=== PATIENT | female | born 1975 ===

== ENCOUNTER 2016-11-11 13:33 | Observation (INO) | payer OTHER ==
[2016-11-11] MEDS ORDERED: NS 1,000 ML IV ONE (14:01)
--- NOTE | 2016-11-11 14:03 | EDPHY ---
H & P Stated Complaint: streytching last thursday/pulled back/seen at /not responding to meds/numbn Time Seen by Provider: 11/11/16 13:38 HPI/ROS: CHIEF COMPLAINT: Low back pain, left leg radiculopathy, perineal anesthesia HISTORY OF PRESENT ILLNESS: The patient presents to the ED complaining of progressive low back pain, left leg radiculopathy and a mild perineal anesthesia. The patient's symptoms reportedly began after she was doing a mild stretch 1 week ago. She initially was not bothered after the stretching however developed some increasing numbness and pain in her low back radiating to her left leg. She eventually developed weakness in the left foot and paresthesias throughout the left lower extremity involving the plantar aspect of the foot and lateral aspect of the foot. The patient has no prior history of low back issues. The patient denies fever, injection drug use or more significant trauma. The patient reports her symptoms are moderate to severe in nature. She has been taking prednisone and Flexeril without improvement. REVIEW OF SYSTEMS: A comprehensive 10 point review of systems is otherwise negative aside from elements mentioned in the history of present illness. Source: Patient Exam Limitations: No limitations - Personal History LMP (Females 10-55): 15-21 Days Ago Current Tetanus/Diphtheria Vaccine: Yes - Medical/Surgical History Hx Asthma: No Hx Chronic Respiratory Disease: No Hx Diabetes: No Hx Cardiac Disease: No Hx Renal Disease: No Hx Cirrhosis: No Hx Alcoholism: No Hx HIV/AIDS: No Hx Splenectomy or Spleen Trauma: No Other PMH: urinary incontinence/partial thyroidectomy - Social History Smoking Status: Never smoked - Physical Exam Exam: General Appearance: Alert, no acute distress Eyes: Pupils equal and round no pallor or injection ENT, Mouth: Mucous membranes moist Respiratory: There are no retractions, lungs are clear to auscultation Cardiovascular: Regular rate and rhythm Gastrointestinal: Abdomen is soft and nontender, no masses, bowel sounds normal Neurological: Alert and oriented x4, 5/5 strength noted throughout the right leg, 5-out of 5 strength noted with dorsiflexion in the left foot, decreased sensation to light touch along the lateral aspect of the light foot, patient is noted to be hyperreflexic at the patella bilaterally. Skin: Warm and dry, no rashes Musculoskeletal: Neck is supple nontender Extremities: symmetrical, full range of motion Constitutional: Initial Vital Signs Temperature (C) 36.8 C 11/11/16 13:36 Heart Rate 88 11/11/16 13:36 Respiratory Rate 16 11/11/16 13:36 Blood Pressure 132/84 H 11/11/16 13:36 O2 Sat (%) 95 11/11/16 13:36 O2 Delivery Mode Room Air Allergies/Adverse Reactions: No Known Allergies Allergy (Unverified 11/11/16 13:35) Home Medications: Medication Instructions Recorded Flexeril 11/11/16 Prednisone 11/11/16 Medical Decision Making - Diagnostics Imaging: MRI lumbar spine without contrast: L5-S1 disc herniation with leftward herniation with moderate compressive affect on S1 nerve root. Study results reported to me by Dr. Bill Jenkins ED Course/Re-evaluation: The patient had an IV established. She presents to the ED with increasing low back pain, perineal anesthesia and reported weakness involving the left leg. The patient was taken for a stat MRI of her back. Consultation was made with Dr. John Perez from Neurosurgery who will evaluate the patient in the emergency department. The patient will be admitted to the hospital for pain management and likely operative repair of her disc herniation. Differential Diagnosis: Differential diagnosis considered includes cauda equina syndrome, sciatica, lumbar radiculopathy - Data Points Laboratory Results: Laboratory Results 11/11/16 14:35 11/11/16 14:35 11/11/16 14:35 WBC 14.03 H 10^3/uL (3.80-9.50) RBC 4.63 10^6/uL (4.18-5.33) Hgb 14.5 g/dL (12.6-16.3) Hct 42.2 % (38.0-47.0) MCV 91.1 fL (81.5-99.8) MCH 31.3 pg (27.9-34.1) MCHC 34.4 g/dL (32.4-36.7) RDW 12.4 % (11.5-15.2) Plt Count 323 10^3/uL (150-400) MPV 8.7 fL (8.7-11.7) Neut % (Auto) 86.2 H % (39.3-74.2) Lymph % (Auto) 9.1 L % (15.0-45.0) [place] % (Auto) 3.8 L % (4.5-13.0) Eos % (Auto) 0.1 L % (0.6-7.6) Baso % (Auto) 0.3 % (0.3-1.7) Nucleat RBC Rel Count 0.0 % (0.0-0.2) Absolute Neuts (auto) 12.10 H 10^3/uL (1.70-6.50) Absolute Lymphs (auto) 1.28 10^3/uL (1.00-3.00) Absolute Monos (auto) 0.53 10^3/uL (0.30-0.80) Absolute Eos (auto) 0.01 L 10^3/uL (0.03-0.40) Absolute Basos (auto) 0.04 10^3/uL (0.02-0.10) Absolute Nucleated RBC 0.00 10^3/uL (0-0.01) Immature Gran % 0.5 % (0.0-1.1) Immature Gran # 0.07 10^3/uL (0.00-0.10) Sodium 142 mEq/L (134-144) Potassium 4.0 mEq/L (3.5-5.2) Chloride 104 mEq/L (97-110) Carbon Dioxide 26 mEq/l (22-31) Anion Gap 12 mEq/L (8-16) BUN 13 mg/dL (7-23) Creatinine 0.8 mg/dL (0.6-1.0) Estimated GFR > 60 Glucose 112 H mg/dL (70-100) Calcium 9.5 mg/dL (8.5-10.4) Beta HCG, Qual NEGATIVE Medications Given: Discontinued Medications Sodium Chloride (Ns) 1,000 mls @ 0 mls/hr IV ONCE ONE PRN Reason: Wide Open Stop: 11/11/16 14:02 Last Admin: 11/11/16 14:44 Dose: 1,000 mls Morphine Sulfate (Morphine) 4 mg IVP ONCE ONE Stop: 11/11/16 14:44 Last Admin: 11/11/16 14:48 Dose: 4 mg Departure - Departure Disposition: [facility] Acute Clinical Impression: Lumbar disc herniation Condition: Good
[2016-11-11 14:46] LABS: % IMMATURE GRANULYOCYTES 0.5 % (0.0-1.1); ABSOLUTE IMMATURE GRANULOCYTES 0.07 10^3/uL (0.00-0.10); ADD DIFF? NO; ADD MORPH? NO; ADD SCAN? NO; ATYPICAL LYMPHOCYTE FLAG 0 (0-99); FRAGMENT RBC FLAG 0 (0-99); HEMATOCRIT 42.2 % (38.0-47.0); HEMOGLOBIN 14.5 g/dL (12.6-16.3); LEFT SHIFT FLG 0 (0-99); LIPEMIA HEMOLYSIS FLAG 90 (0-99); MEAN CELL HEMOGLOBIN 31.3 pg (27.9-34.1); MEAN CELL HEMOGLOBIN CONCENTR. 34.4 g/dL (32.4-36.7); MEAN CELL VOLUME 91.1 fL (81.5-99.8); MEAN PLATELET VOLUME 8.7 fL (8.7-11.7); PLATELET CLUMPS FLAG 0 (0-99); PLATELET COUNT 323 10^3/uL (150-400); RED BLOOD CELL COUNT 4.63 10^6/uL (4.18-5.33); RED CELL DISTRIBUTION WIDTH 12.4 % (11.5-15.2)
[2016-11-11 15:19] LABS: ANION GAP 12 mEq/L (8-16); CALCIUM 9.5 mg/dL (8.5-10.4); CARBON DIOXIDE 26 mEq/l (22-31); CHLORIDE 104 mEq/L (97-110); CREATININE 0.8 mg/dL (0.6-1.0); GLOMERULAR FILTRATION RATE > 60; GLUCOSE 112 mg/dL (70-100); SODIUM 142 mEq/L (134-144)
[2016-11-11] MEDS ORDERED: THROMBIN (RECOMBINANT) 20,000 UNIT VIAL TP ONE ×2 (15:34→15:47)
[2016-11-11] MEDS ORDERED: SKIN ADHESIVE (DERMABOND) 1 EACH TP ONE (15:34)
[2016-11-11] MEDS ORDERED: BUPIVACAINE/EPI 0.25% 30 ML SDV ONE (15:35)
[2016-11-11] MEDS ORDERED: BACITRACIN 50,000 UNITS/10 ML SYR IRR ONE (15:35)
--- NOTE | 2016-11-11 15:58 | GHP ---
[f rep st] HISTORY AND PHYSICAL DATE OF ADMISSION: 11/11/2016 CHIEF COMPLAINT: Left leg radiculopathy, urinary incontinence, low back pain, numbness. HISTORY OF PRESENT ILLNESS: The patient presented to the [facility] emergency room complainin g of progressive low back pain, left leg radiculopathy and perineal numbness. Also states that she h as had worsening incontinence. Patient contacted our office previously today with these issues. She had previously trialed some oral steroids with no significant improvement in her symptoms, and she w as directed to the closest emergency room. The patient reports that she developed symptoms about 1 w [place] ago when she was doing some gentle stretching. She was initially dealing with some back pain, wh ich she has had for some time now, but states that she then started to develop numbness and pain down her left leg. She states that she does at her baseline have some difficulty with her bladder contro l, however, she states that this was getting worse today. She had severe left leg pain. She had dif ficulty with walking, and also had developed weakness into her left foot, along with numbness down he r leg and into the foot as well. On examination today the patient states her pain is slightly improved with pain medication, however, she still has persistent weakness and feels like she is unable to fully stop a stream of urine when u rinating. She states that she continues to drip urine. She has been taking prednisone and Flexeril at home, and they have not helped her symptoms. She denies nausea, vomiting, other weakness, numbnes s or tingling elsewhere in her body, neck pain, arm pain. REVIEW OF SYSTEMS: Please see above mentioned in the HPI. PAST MEDICAL HISTORY: Urinary incontinence, and partial thyroidectomy. SOCIAL HISTORY: The patient is , she has a child, her is here at the bedside. She is a nonsmoker. FAMILY HISTORY: Patient has a daughter who is healthy. PHYSICAL EXAMINATION: GENERAL: A well-developed, well-nourished female patient in no acute distress . NEUROLOGIC: Cranial nerves 2-12 were grossly intact. Motor examination of the bilateral upper ex tremities is 5/5 for deltoid, triceps, biceps and hand intake manager. Motor examination of the bilateral lowe r extremities is 5/5 for hip flexion, flexion extension and plantar flexion. She has approximately 4 /5 for left foot dorsiflexion. She has decreased sensation to light touch along the posterior aspect of her right leg and lateral aspect of her left foot. She has 3+ bilateral patellar reflexes, negat dragan Babinski, no clonus. She has 2+ bilateral brachioradialis reflexes. No incisions noted over her lumbar spine area, or scarring. LABORATORY: White blood cells 14.03, red blood cells 4.63, hemoglobin 14.5, hematocrit 42.2. MCV is 91, RDW 12.4, platelet count 323. Sodium is 142, potassium 4.0, chloride 104, carbon dioxide 26, an ion gap 12, BUN 13, creatinine 0.8, GFR greater than 50, glucose 112, calcium 9.5, beta HCG is negati ve. IMAGING: MRI of the lumbar spine has been completed, the report is pending. Dr. Perez and I have r eviewed this. She has a very large left-sided disk herniation that extrudes upward behind the L5 syed tebral body and extends into the left L5-S1 foramina, causing severe nerve compression. PLAN: Dr. Perez and I discussed treatment options with the patient in the emergency room this after noon at approximately 3:15 p.m. We discussed that with her large disk herniation it would still be r easonable to consider nonsurgical intervention, however, that we are concerned based on her weakness. We gave her the option of trialing an epidural steroid injection and continuing with pain medicatio ns and physical therapy versus proceeding forth with surgery. After discussing with her rebecca ent elected to proceed with surgical intervention via a left-sided L5-S1 microdiskectomy. Written i nformed consent was obtained. Patient was marked for surgery, which will take place later this after noon. Patient last ate at 9:45 a.m. this morning. We discussed the plan with the patient and her sband at length, and all questions were answered, along with the risks involved with proceeding with surgery, and they are in agreement and wish to proceed with surgical intervention. Please contact [facility] Neurosurgery service with any additional questions or concerns. /[id number]/MODL
[2016-11-11] MEDS ORDERED: REMIFENTANIL HCL 1 MG VIAL ONE ×3 (16:02)
[2016-11-11] MEDS ORDERED: PROPOFOL/EMULSION 500 MG/50 ML BOTTLE IV ONE ×2 (16:03→17:24)
[2016-11-11] MEDS ORDERED: fentaNYL 250 MCG/5 ML INJ ONE (16:03)
[2016-11-11] MEDS ORDERED: ROCURONIUM 50 MG/5 ML VIAL ONE (16:05)
[2016-11-11] MEDS ORDERED: SUCCINYLCHOLINE CHLORIDE*ANESTHESIA ONLY*200 MG/10 ML SYR IVP ONE (16:05)
[2016-11-11] MEDS ORDERED: LIDOCAINE 2% 5 ML SDV ONE (16:08)
[2016-11-11] MEDS ORDERED: MIDAZOLAM 2 MG/2 ML VIAL ONE (16:12)
[2016-11-11] MEDS ORDERED: ceFAZolin 1 GM VIAL ONE ×2 (16:43)
[2016-11-11] MEDS ORDERED: DEXAMETHASONE 4 MG/ML VIAL ONE (16:43)
[2016-11-11] MEDS ORDERED: ONDANSETRON 4 MG/2 ML VIAL ONE (16:44)
--- NOTE | 2016-11-11 16:59 | MR ---
MRI lumbar spine without contrast. HISTORY: Back pain. Leg tingling and weakness. TECHNIQUE: MRI is performed of the lumbar spine using the 3 [employer] MRI system. Sagittal and axial imag ing was obtained with standard imaging sequences. FINDINGS: No significant bone marrow abnormality is visualized. No evidence for compression fracture. No significant spondylolisthesis. Conus is visualized at L1 and is unremarkable. There is mild disk desiccation and disk height narrowing at L5-S1. T12-L1 through L3-L4 levels are unremarkable. L4-L5 level demonstrates a minimal broad-based annular bulge. Mild facet and ligamentum flavum hypert rophy is seen causing no significant encroachment. L5-S1 level demonstrates a left parasagittal protrusion extending slightly caudally posterior to the L4 vertebral body. Craniocaudal extent is 12 mm. Width of the protrusion is 17 mm and extends posteri ashleigh 6.5 mm. There is moderate compression of the descending left S1 nerve root at the lateral recess . There is slight compression of the right S1 nerve root at the lateral recess. No significant neural foraminal encroachment. IMPRESSION: Left parasagittal protrusion moderately compressing the left S1 nerve root at the latera l recess. Mild early degenerative disk and degenerative joint disease L4-5 causing no significant enc roachment. Results called to Dr. John Johnston.
[2016-11-11] MEDS ORDERED: LACTULOSE 20 GM/30 ML UDCUP PO PRN (17:26)
[2016-11-11] MEDS ORDERED: diphenhydrAMINE 25 MG CAP PO PRN (17:26)
[2016-11-11] MEDS ORDERED: POLYETHYLENE GLYCOL 3350 17 GM PKT PO PRN (17:26)
[2016-11-11] MEDS ORDERED: METHOCARBAMOL 750 MG TAB PO PRN (17:26)
[2016-11-11] MEDS ORDERED: ONDANSETRON 4 MG/2 ML VIAL IVP PRN (17:26)
[2016-11-11] MEDS ORDERED: PROMETHAZINE HCL 25 MG/ML VIAL IVP PRN (17:26)
[2016-11-11] MEDS ORDERED: BISACODYL 10 MG SUPP PR PRN (17:26)
[2016-11-11] MEDS ORDERED: DIAZEPAM 10 MG/2 ML SYR IVP PRN (17:26)
[2016-11-11] MEDS ORDERED: MAGNESIUM HYDROXIDE 30 ML UDCUP PO PRN (17:26)
[2016-11-11] MEDS ORDERED: ACETAMINOPHEN 325 MG TAB PO PRN (17:26)
[2016-11-11] MEDS ORDERED: ONDANSETRON DISINTEGRATING 4 MG TAB PO PRN (17:26)
[2016-11-11] MEDS ORDERED: HYDROmorphONE/DILAUDID 1 MG/ML SYR IVP PRN (17:26)
[2016-11-11] MEDS ORDERED: NS W/ 20 KCl/L 1,000 ML IV SCH (17:30)
[2016-11-11] MEDS ORDERED: SUGAMMADEX SODIUM 200 MG/2 ML VIAL IVP ONE (18:00)
--- NOTE | 2016-11-11 18:28 | POSTOPPROG ---
Post Op Note Date of Operation: 11/11/16 Surgeon: John Perez General Engineering Teacher: Aileen Castellano PA-C Anesthesia: GET(General Endotracheal) Pre-op Diagnosis: L5-S1 disc herniation Post-op Diagnosis: same Indication: radiculopathy, foot weakness Procedure: left L5-S1 microdiscectomy Findings: Please see Dr. Perez's operative report Inf/Abcess present in the surg proc area at time of surgery?: No Depth: Organ Space EBL: Minimal Complications: none PA Addendum - Addendum .: S: Pt awake in PACU, denies pain O: AAOx3 NAD VSS MAEx4 Motor 5/5 BUE/BLE +LT- some left lateral foot numbness Incision dressed cdi A: 41 yo F s/p left sided L5-S1 microdiscectomy leg strength improved post op, less numbness P: Pain management TEDs, SCDs, lovenox POD#1 Diet as tolerated PT/OT Call NS with any issues
[2016-11-11] MEDS ORDERED: HYDROmorphONE/DILAUDID 1 MG/ML SYR ONE (18:31)
[2016-11-11] MEDS ORDERED: fentaNYL 100 MCG/2 ML INJ ONE (18:31)
[2016-11-11] MEDS ORDERED: METHOCARBAMOL 750 MG TAB ONE (18:31)
--- NOTE | 2016-11-11 18:52 | DX ---
Intraoperative fluoroscopy. HISTORY: Lumbar spine surgery. FINDINGS: 7 seconds of intraoperative fluoroscopy utilized by Dr. Luciano Brown during lumbar spine surg sammy. Matrix radiographs obtained of the procedure demonstrate placement of metallic operative instruments at L5-S1. IMPRESSION: Intraoperative fluoroscopy during lumbar spine surgery.
[2016-11-11] MEDS ORDERED: OXYCODONE/APAP 5/325 TAB ONE (18:56)
--- NOTE | 2016-11-11 19:04 | GOP ---
[f rep st] OPERATIVE REPORT DATE OF OPERATION: 11/11/2016 SURGEON: John Perez MD LENS AND FRAMES PRESCRIPTION CLERK: Hattie Castellano ANESTHESIA: General. PREOPERATIVE DIAGNOSIS: 1. Left lower extremity radiculopathy with acute onset weakness. 2. Treatment refractory to nonoperative intervention. POSTOPERATIVE DIAGNOSIS: 1. Left lower extremity radiculopathy with acute onset weakness. 2. Treatment refractory to nonoperative intervention. PROCEDURE PERFORMED: 1. Left-sided L5-S1 hemilaminotomy with medial facetectomy, lateral recess decompression, and microd iskectomy and nerve root decompression of both L5 and S1. 2. Use of intraoperative fluoroscopy, less than 1 hour physician time. 3. Use neuromonitoring. 4. Use of the operating microscope. FINDINGS: SPECIMENS: None. ESTIMATED BLOOD LOSS: 10 mL. 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 She has had a known history of low back pain with left lower extremity radiculopathy, but developed excruciating left lower extremity radiculopathy with foot weakness. She has already been treated with oral steroi ds, and we discussed with her nonoperative interventions including injections, further medications, a nd physical therapy. The patient was in excruciating pain, and showed up to [facility] Emergency Department and did not feel that she can continue on with her activities of daily livin g. Given the weakness and MRI findings of a left-sided L5-S1 herniated nucleus pulposus, she decided to proceed forth with surgery as described above. DESCRIPTION OF PROCEDURE: Patient was brought to the operating theater and underwent general endotra cheal anesthesia without complications. She had Venodynes and BJ hose, and a Palacios catheter placed. She was flipped prone on the Pankaj frame, and all bony prominences were inspected and padded. The lower lumbar region was then prepped and draped in the usual sterile surgical fashion. A timeout wa s completed per protocol, and the patient received antibiotics within 1 hour of incision. Using lateral fluoroscopy and a spinal needle, we then picked an entry point to the L5-S1 level. Thi s was marked in the midline and incision was then infiltrated with Marcaine with epinephrine. The incision was taken down with the scalpel blade and using monopolar, taken down in the midline thr ough the lumbodorsal fascia to the left-side of the L5-S1 interlaminar space. We then confirmed our level using lateral fluoroscopy. Deep retractors were placed to maintain our exposure. The microsco pe was brought into field to assist with microscopic dissection and to maintain illumination and magn ification. Using a combination of the bur tip on the drill and Kerrison punches, we completed a left-sided L5-S 1 hemilaminotomy with medial facetectomy. We resected ligamentum flavum. We then retracted the thec al sac medially. She had a large ventral disk bulge, which was then incised with an 11 blade. There were no acute fragments, but using down-pushing curettes, angled nerve hooks, and micro pituitaries we then completed a left-sided L5-S1 microdiskectomy. I also reached cranially above the disk space and out into the foramen, and completed a partial foraminotomy of the L5 nerve root. Once I felt tran t everything was well decompressed, we obtained hemostasis with the bipolar. The wound was then irrigated copiously with bacitracin irrigation. The wound was then closed in mult iple layers including Vicryl sutures for the deep layers and Dermabond for the skin. The patient's w ounds were dressed sterilely. She was then flipped supine onto the transfer cart. She was awakened, extubated, and taken to the recovery room in stable condition. There were no complications and no noted changes on neuromonitoring throughout the procedure. COMPLICATIONS: None. /[id number]/MODL
[2016-11-11] MEDS: DIAZEPAM 5 MG TAB PO PRN (20:57)
[2016-11-11] MEDS: SENNOSIDES/DOCUSATE SODIUM TAB PO SCH (20:57)
[2016-11-11] MEDS: FAMOTIDINE 20 MG TAB PO SCH (20:57)
[2016-11-11] MEDS ORDERED: FAMOTIDINE 20 MG/NACL 50 ML IV SCH (21:00)
[2016-11-11] MEDS: OXYCODONE/APAP 5/325 TAB PO PRN (23:13)
[2016-11-12] MEDS: DIAZEPAM 5 MG TAB PO PRN ×2 (02:35→09:16)
[2016-11-12] MEDS: OXYCODONE/APAP 5/325 TAB PO PRN (04:28)
[2016-11-12 07:28] VITALS: TEMP 98.1
--- NOTE | 2016-11-12 07:48 | NEUSURGPN ---
Date of Surgery: 11/11/16 Post Op Day: 1 Assessment/Plan: Status post left L5/S1 SESAR for severe pain and left foot weakness. Ongoing leg pain this AM. Stength improved per pt. Once pain controlled on oral meds, DC Home. Will start Gabapentin Subjective: lying in bed, just came back from [place]. Reports increased pain in Left leg this AM. She thinks the strength in her left foot is improved however. States Robaxin does not help and prefers Valium Objective: Dressing: CDI Neuro: Delacruz, sens +LT 5/5 DF/PF/EHL bilat ambulated to BR Urinating Urinary Catheter in Place: No Catheter Insertion Date: 11/11/16 - Physician Discussed Patient with DrDorie: [facility] Neurosurgery Physical Exam - Vitals, I&O, Labs I and O 11/11/16 11/12/16 11/13/16 05:59 05:59 05:59 Intake Total 4265 Output Total 510 850 Balance 3755 -850 Weight 95.254 kg Intake: Oral (ml) 1190 IV Intake (ml) 1350 IV Infused (ml) 1725 ceFAZolin 1 GM/DEXTROSE 50 50 ml @ 200 mls/hr IV Q8H ETIENNE Rx#:[id number] NS W/ 20 KCl/L 1,000 ml @ 675 75 mls/hr IV CONT ETIENNE Rx #:[id number] Output: Urine (ml) 500 850 Toilet 500 850 Estimated Blood Loss (ml) 10 Other: Number of Voids Toilet 1 1 Vital Signs Temp Pulse Resp BP Pulse Ox 36.7 C 71 16 113/61 95 11/12/16 07:25 11/12/16 07:25 11/12/16 07:25 11/12/16 07:25 11/12/16 07:25 ICD10 Worksheet Patient Problems: Problems Problem Status Diagnosed Lumbar disc herniation Acute
[2016-11-12] MEDS: SENNOSIDES/DOCUSATE SODIUM TAB PO SCH (08:30)
[2016-11-12] MEDS: oxyCODONE IR 5 MG TAB PO PRN ×2 (08:30→12:52)
[2016-11-12] MEDS: FAMOTIDINE 20 MG TAB PO SCH (08:30)
[2016-11-12 11:55] VITALS: BP 100/56; PULSE 74; RESP 14; O2SAT 94
[2016-11-12] MEDS ORDERED: ENOXAPARIN 40 MG/0.4 ML SYR SC SCH (16:00)
== END 2016-11-12 13:21 | disposition home or self-care (01) ==
LOC: F3N 19:38
PROVIDERS: ADMIT Neurological Surgery; ATTEND Neurological Surgery
PROC: 00NY0ZZ Release Lumbar Spinal Cord, Open Approach (ICD-10-PCS; principal; 2016-11-11 16:00)
PROC: 8E0WXBZ Computer Assisted Procedure of Trunk Region (ICD-10-PCS; principal; 2016-11-11 16:00)
DX: M51.16 Intervertebral disc disorders with radiculopathy, lumbar region (principal)
CPT/HCPCS: 63030; 72148; 76001; 96361; 96374; 97161; 97165; 99285; G0378; J0330; J0690; J1100; J1170; J2250; J2405; J2704; J3010